=== PATIENT | female | born 1990 | race Caucasian/White ===

== ENCOUNTER 2024-06-04 09:11 | Inpatient (IN) | payer BC ==
[~2024-06-04 09:11] MED LIST: Bupivacaine 0.25% 10 ML SDV ONE; Phenylephrine 1% 10 MG/ML SDV ONE
[2024-06-04 10:38] LABS: BASOPHILS PERCENT AUTO 0.4 % (0.0-1.0); EOSINOPHILS ABSOLUTE AUTO 0.2 K/mm3 (0.0-0.4); EOSINOPHILS PERCENT AUTO 1.7 % (0.0-6.0); HEMATOCRIT 42.6 % (37.0-47.0); HEMOGLOBIN 14.5 gm/dl (12.0-16.0); IMMATURE GRAN ABSOLUTE AUTO 0.07 K/mm3 (0.00-0.05); IMMATURE GRAN PERCENT AUTO 0.7 % (0.0-0.4); LYMPHOCYTES ABSOLUTE AUTO 3.1 K/mm3 (1.0-4.8); MEAN CORPUSCULAR HEMOGLOBIN 29.5 pg (28.0-32.0); MEAN CORPUSCULAR VOLUME 86.6 fl (83.0-99.0); MEAN PLATELET VOLUME 9.9 fl (9.4-12.3); MONOCYTES ABSOLUTE AUTO 0.7 K/mm3 (0.0-0.8); MONOCYTES PERCENT AUTO 7.2 % (0.0-8.0); NEUTROPHILS ABSOLUTE AUTO 6.2 K/mm3 (1.8-7.7); PLATELET COUNT,PLT 283 K/mm3 (150-400); RED BLOOD CELL COUNT 4.92 M/mm3 (4.10-5.30); WHITE BLOOD CELL COUNT,WBC 10.29 K/mm3 (3.9-11.3)
[2024-06-04 11:09] LABS: CREATININE 0.9 mg/dL (0.55-1.02); EST CRCL DRUG DOSING (CG) 87.27 mL/min; URIC ACID 5.7 mg/dL (2.6-6.0)
[2024-06-04] MEDS ORDERED: Nalbuphine 10 MG/1 ML Vial IVPUSH PRN (11:11)
[2024-06-04 11:29] LABS: CREATININE,URINE RAND 52.7 mg/dL (30.0-125.0); PROTEIN CREATININE RATIO,URINE 159.4 mg/g (0-149); PROTEIN,URINE RANDOM 8.4 mg/dL (0.0-11.8)
[2024-06-04] MEDS: Misoprostol 25 MCG (1/4 of 100 MCG) Tab VAG ONE (11:31)
[2024-06-04] MEDS ORDERED: FLU (Flulaval Triv) 24-25(6MOS UP)/PF 45 MCG/0.5 ML Syringe IM ONE (12:30)
[2024-06-04] MEDS: Misoprostol 25 MCG (1/4 of 100 MCG) Tab VAG PRN (15:37)
[2024-06-04] MEDS: Lactated Ringers 1,000 ML IV SCH (19:36)
[2024-06-05] MEDS: Oxytocin/0.9 % Sodium Chloride 30 UNIT/500 ML BAG IV SCH ×2 (00:17→22:05)
[2024-06-05] MEDS: Ampicillin 2 GM in Sodium Chloride 0.9% 100 ML IV ONE (00:17)
[2024-06-05] MEDS: Ampicillin 1 GM in Sodium Chloride 0.9% 100 ML IV SCH ×2 (04:06→08:30)
[2024-06-05] MEDS ORDERED: Ampicillin 1 GM in Sodium Chloride 0.9% 100 ML IV SCH (04:30)
[2024-06-05] MEDS ORDERED: ePHEDrine 50 MG/ML SDV IVPUSH PRN (09:39)
[2024-06-05] MEDS ORDERED: diphenhydrAMINE 50 MG/ML SDV IVPUSH PRN (09:39)
[2024-06-05] MEDS: fentaNYL 100 MCG/2 ML SDV EPIDUR PRN (09:44)
[2024-06-05] MEDS: Bupivacaine/fentaNYL/NS 100 ML Bag EPIDUR PRN (09:44)
[2024-06-05] MEDS ORDERED: Phenylephrine 1% 10 MG/ML SDV IVPUSH PRN (10:39)
[2024-06-05] MEDS: Sodium Chloride 0.9% 10 ML Syringe FLUSH SCH (15:42)
[2024-06-05] MEDS: Ondansetron 4 MG/2 ML SDV IVPUSH PRN (17:58)
[2024-06-05] MEDS: Lidocaine 1% 50 ML MDV INJECT PRN (21:55)
[2024-06-05] MEDS ORDERED: Bisacodyl 10 MG Supp RECTAL PRN (22:28)
[2024-06-05] MEDS ORDERED: Sennosides 8.6 MG Tab PO PRN (22:28)
[2024-06-05 22:44] LABS: HEMATOCRIT 37.2 % (37.0-47.0); HEMOGLOBIN 12.8 gm/dl (12.0-16.0); MEAN CORPUSCULAR HEMOGLOBIN 29.8 pg (28.0-32.0); MEAN CORPUSCULAR HGB CONC 34.4 g/dl (32.0-36.0); MEAN CORPUSCULAR VOLUME 86.7 fl (83.0-99.0); MEAN PLATELET VOLUME 10.1 fl (9.4-12.3); PLATELET COUNT,PLT 274 K/mm3 (150-400); RED BLOOD CELL COUNT 4.29 M/mm3 (4.10-5.30); WHITE BLOOD CELL COUNT,WBC 15.22 K/mm3 (3.9-11.3)
[2024-06-05 23:04] LABS: INR 0.95; PROTHROMBIN TIME 10.1 SECONDS (9.7-12.0)
[2024-06-05 23:05] LABS: PTT,PARTIAL THROMBOPLSTIN TIME 27.5 SECONDS (21.7-31.4)
[2024-06-06] MEDS: Ibuprofen 800 MG Tab PO SCH (00:14)
[2024-06-06] MEDS: Benzocaine/Menthol 20%-0.5% Spray 78 GM Cannister TOP PRN (00:15)
[2024-06-06] MEDS: Witch Hazel Medicated Pads 40/Jar TOP PRN (00:15)
[2024-06-06] MEDS: Tranexamic Acid 1,000 MG/10 ML Vial IV ONE (01:13)
[2024-06-06] MEDS: Carboprost Tromethamine 250 MCG/1 mL Vial IM ONE (01:54)
[2024-06-06] MEDS: Atropine/Diphenoxylate 0.025-2.5 MG Tab PO ONE (01:55)
[2024-06-06] MEDS: Ampicillin 2 GM in Sodium Chloride 0.9% 100 ML IV ONE (03:22)
[2024-06-06 06:56] LABS: INR 0.94
[2024-06-06 06:58] LABS: PTT,PARTIAL THROMBOPLSTIN TIME 27.8 SECONDS (21.7-31.4)
[2024-06-06 07:17] LABS: A/G RATIO 0.6 (1-2); ANION GAP 15.4 (5-15); BILIRUBIN TOTAL 0.3 mg/dL (0.2-1.0); BUN/CREATININE RATIO 11.1 (14-18); CREATININE 0.9 mg/dL (0.55-1.02); EST CRCL DRUG DOSING (CG) 87.27 mL/min; POTASSIUM,K 4.4 mEq/L (3.5-5.1); PROTEIN TOTAL,TP 5.2 g/dl (6.4-8.2)
[2024-06-06 08:21] LABS: BASOPHILS PERCENT AUTO 0.2 % (0.0-1.0); EOSINOPHILS ABSOLUTE AUTO 0.1 K/mm3 (0.0-0.4); EOSINOPHILS PERCENT AUTO 0.3 % (0.0-6.0); HEMATOCRIT 30.3 % (37.0-47.0); IMMATURE GRAN ABSOLUTE AUTO 0.14 K/mm3 (0.00-0.05); IMMATURE GRAN PERCENT AUTO 0.8 % (0.0-0.4); LYMPHOCYTES ABSOLUTE AUTO 3.3 K/mm3 (1.0-4.8); LYMPHOCYTES PERCENT AUTO 17.9 % (24.0-44.0); MEAN CORPUSCULAR HEMOGLOBIN 29.7 pg (28.0-32.0); MEAN CORPUSCULAR VOLUME 87.3 fl (83.0-99.0); MEAN PLATELET VOLUME 10.3 fl (9.4-12.3); MONOCYTES ABSOLUTE AUTO 0.9 K/mm3 (0.0-0.8); NEUTROPHILS ABSOLUTE AUTO 14.1 K/mm3 (1.8-7.7); NEUTROPHILS PERCENT AUTO 75.8 % (41.0-71.0); PLATELET COUNT,PLT 277 K/mm3 (150-400); RED BLOOD CELL COUNT 3.47 M/mm3 (4.10-5.30); WHITE BLOOD CELL COUNT,WBC 18.64 K/mm3 (3.9-11.3)
[2024-06-06 09:23] LABS: HEMOGLOBIN 10.3 gm/dl (12.0-16.0)
[2024-06-07 05:40] LABS: HEMOGLOBIN 8.9 gm/dl (12.0-16.0); MEAN CORPUSCULAR HEMOGLOBIN 29.5 pg (28.0-32.0); MEAN CORPUSCULAR VOLUME 89.4 fl (83.0-99.0); MEAN PLATELET VOLUME 9.3 fl (9.4-12.3); PLATELET COUNT,PLT 268 K/mm3 (150-400); RED BLOOD CELL COUNT 3.02 M/mm3 (4.10-5.30); WHITE BLOOD CELL COUNT,WBC 14.03 K/mm3 (3.9-11.3)
[2024-06-07] MEDS: Ferrous Sulfate 324 MG Tab.EC PO SCH (07:56)
[2024-06-07] MEDS: Docusate Sodium 100 MG Cap PO PRN (10:27)
[2024-06-07] MEDS: FLU (Flulaval Triv) 24-25(6MOS UP)/PF 45 MCG/0.5 ML Syringe IM ONE (13:14)
[2024-06-07] MEDS: Acetaminophen 325 MG Tab PO PRN (16:51)
== END 2024-06-07 20:02 | disposition home or self-care (01) | DRG 560 ==
LOC: JD.OBCHECK 09:11 → JD.OB 09:11 → JD.OBCHECK 11:10 → JD.OB 11:47 → OBSVTOIN 06-05 21:45 → JD.OB 06-05 21:46
PROVIDERS: ADMIT Obstetrics & Gynecology; ATTEND Obstetrics & Gynecology
PROC: 10E0XZZ Delivery of Products of Conception, External Approach (ICD-10-PCS; principal; 2024-06-05)
PROC: 3E033VJ Introduction of Other Hormone into Peripheral Vein, Percutaneous Approach (ICD-10-PCS; 2024-06-05)
PROC: 3E0P7VZ Introduction of Hormone into Female Reproductive, Via Natural or Artificial Opening (ICD-10-PCS; 2024-06-05)
PROC: 3E0DXGC Introduction of Other Therapeutic Substance into Mouth and Pharynx, External Approach (ICD-10-PCS; 2024-06-05)
PROC: 0KQM0ZZ Repair Perineum Muscle, Open Approach (ICD-10-PCS; 2024-06-05)
PROC: 10H07YZ Insertion of Other Device into Products of Conception, Via Natural or Artificial Opening (ICD-10-PCS; 2024-06-05)
PROC: 3E0234Z Introduction of Serum, Toxoid and Vaccine into Muscle, Percutaneous Approach (ICD-10-PCS; 2024-06-05)
PROC: 3E0R3BZ Introduction of Anesthetic Agent into Spinal Canal, Percutaneous Approach (ICD-10-PCS; 2024-06-05)
PROC: 00HU33Z Insertion of Infusion Device into Spinal Canal, Percutaneous Approach (ICD-10-PCS; 2024-06-05)
DX: O13.4 Gestational [pregnancy-induced] hypertension without significant proteinuria, complicating childbirth (principal); Z37.0 Single live birth; O24.424 Gestational diabetes mellitus in childbirth, insulin controlled; O72.1 Other immediate postpartum hemorrhage; D62 Acute posthemorrhagic anemia; O99.824 Streptococcus B carrier state complicating childbirth; O70.1 Second degree perineal laceration during delivery; O69.81X0 Labor and delivery complicated by cord around neck, without compression, not applicable or unspecified; O99.214 Obesity complicating childbirth; O90.81 Anemia of the puerperium; Z23 Encounter for immunization; Z3A.39 39 weeks gestation of pregnancy; Z91.040 Latex allergy status; Z98.890 Other specified postprocedural states
CPT/HCPCS: 36415; 51701; 51702; 59025; 59409; 80053; 82565; 82570; 83615; 84156; 84450; 84460; 84520; 84550; 85025; 85027; 85384; 85610; 85730; 86592; 86850; 86900; 86901; 90686; A9270-GY; G0008; J0290; J0665; J2001; J2371; J2405; J3010; J3490; J7120; J7999

== ENCOUNTER 2024-06-09 03:33 | Emergency (ER) | payer BC | END 2024-06-09 07:57 | disposition home or self-care (01) | LOC: JD.ED 03:33 | DX: S86.111A Strain of other muscle(s) and tendon(s) of posterior muscle group at lower leg level, right leg, initial encounter (principal); Z91.040 Latex allergy status; X58.XXXA Exposure to other specified factors, initial encounter | CPT/HCPCS: 93971-26-RT; 93971-RT; 99283 ==

== ENCOUNTER 2024-06-27 16:09 | Emergency (ER) | payer BC ==
[2024-06-27 17:26] LABS: BASOPHILS ABSOLUTE AUTO 0.1 K/mm3 (0.0-0.2); BASOPHILS PERCENT AUTO 0.6 % (0.0-1.0); EOSINOPHILS ABSOLUTE AUTO 0.4 K/mm3 (0.0-0.4); HEMATOCRIT 37.5 % (37.0-47.0); IMMATURE GRAN ABSOLUTE AUTO 0.01 K/mm3 (0.00-0.05); IMMATURE GRAN PERCENT AUTO 0.1 % (0.0-0.4); LYMPHOCYTES ABSOLUTE AUTO 3.1 K/mm3 (1.0-4.8); LYMPHOCYTES PERCENT AUTO 39.1 % (24.0-44.0); MEAN CORPUSCULAR HEMOGLOBIN 29.4 pg (28.0-32.0); MEAN CORPUSCULAR VOLUME 91.9 fl (83.0-99.0); MEAN PLATELET VOLUME 8.8 fl (9.4-12.3); MONOCYTES ABSOLUTE AUTO 0.5 K/mm3 (0.0-0.8); MONOCYTES PERCENT AUTO 5.8 % (0.0-8.0); NEUTROPHILS ABSOLUTE AUTO 3.9 K/mm3 (1.8-7.7); NEUTROPHILS PERCENT AUTO 49.4 % (41.0-71.0); PLATELET COUNT,PLT 359 K/mm3 (150-400); RED BLOOD CELL COUNT 4.08 M/mm3 (4.10-5.30); WHITE BLOOD CELL COUNT,WBC 7.96 K/mm3 (3.9-11.3)
[2024-06-27 18:15] LABS: A/G RATIO 1.1 (1-2); ALBUMIN 3.8 g/dl (3.4-5.0); ANION GAP 13.1 (5-15); BILIRUBIN TOTAL 0.4 mg/dL (0.2-1.0); CALCIUM 9.3 mg/dL (8.5-10.1); EST CRCL DRUG DOSING (CG) 77.81 mL/min; POTASSIUM,K 4.1 mEq/L (3.5-5.1); PROTEIN TOTAL,TP 7.3 g/dl (6.4-8.2)
== END 2024-06-27 19:36 | disposition home or self-care (01) ==
LOC: JD.ED 16:09
DX: O72.1 Other immediate postpartum hemorrhage (principal); Z91.040 Latex allergy status
CPT/HCPCS: 36415; 76830; 76830-26; 80053; 85025; 99284